=== PATIENT | male | born 1995 | race Two or more races ===

== ENCOUNTER 2021-11-16 18:16 | Emergency (ER) | payer OTHER ==
[2021-11-16 19:39] VITALS: BP 131/80; PULSE 66; TEMP 98.5; BMI 35.9
[2021-11-17 20:24] LABS: HIV INTERPRETATION NEGATIVE (NEGATIVE)
[2021-11-17 21:07] LABS: SYPHILIS W/ RPR CONF NON-REACTIVE (NONREACTIVE)
== END 2021-11-16 20:35 | disposition home or self-care (01) ==
LOC: JER 18:16 → JERFT 18:16
DX: Z11.3 Encounter for screening for infections with a predominantly sexual mode of transmission (principal)
CPT/HCPCS: 36415; 86704; 86780; 86803; 87340; 87389; 87491; 87517; 87591; 99283-25

== ENCOUNTER 2022-03-09 11:32 | Emergency (ER) | payer OTHER ==
[2022-03-09 11:54] VITALS: BP 139/77; PULSE 74; TEMP 98; BMI 35.3
[2022-03-09] MEDS ORDERED: SODIUM CHLORIDE 0.9% 500 ML INFUS.BAG IV ONE (12:49)
[2022-03-09] MEDS ORDERED: FAMOTIDINE 20 MG/50 ML IVPB 20 MG/50 ML MG IVPB ONE (12:49)
[2022-03-09] MEDS ORDERED: ONDANSETRON 4 MG/2 ML VIAL IVPUSH ONE (12:49)
[2022-03-09] MEDS ORDERED: ONDANSETRON 4 MG/2 ML VIAL ONE (13:05)
[2022-03-09] MEDS ORDERED: FAMOTIDINE 10 MG/ML VIAL IVPB ONE (13:06)
[2022-03-09 13:53] LABS: BASO % 0.3 % (0-2.0); EOS % 0.4 % (0-4.5); HEMATOCRIT 43.4 % (35.4-49); HEMOGLOBIN 14.7 GM/dL (11.7-16.9); LYMPH % 34.9 % (8-40); MCH 29.2 pg (25.7-33.7); MCHC 33.9 g/dl (32.0-35.9); MEAN CELL VOLUME 86.2 fl (80-96); MEAN PLT VOLUME 8.1 fl (7.5-11.1); MONO % 18.2 % (3.8-10.2); NEUT % 46.2 % (42.8-82.8); PLATELET COUNT 236 10^3/uL (134-434); RBC 5.04 M/mm3 (4.00-5.60); RDW 13.7 % (11.9-15.9); WHITE BLOOD COUNT 3.7 K/mm3 (4.0-10.0)
[2022-03-09 14:19] LABS: BLOOD UREA NITROGEN 8.6 mg/dL (7-18); CALCIUM 8.9 mg/dL (8.5-10.1)
[2022-03-09 14:20] LABS: ALBUMIN 3.9 g/dl (3.4-5.0)
[2022-03-09 14:24] LABS: BILIRUBIN,TOTAL 0.3 mg/dL (0.2-1); TOT PROT 7.8 g/dl (6.4-8.2)
== END 2022-03-09 14:58 | disposition home or self-care (01) ==
LOC: JER 11:32
PROC: 3E033GC Introduction of Other Therapeutic Substance into Peripheral Vein, Percutaneous Approach (ICD-10-PCS; principal; 2022-03-09)
DX: R11.10 Vomiting, unspecified (principal); R19.7 Diarrhea, unspecified
CPT/HCPCS: 36415; 80053; 83690; 85025; 99284-25